=== PATIENT | male | born 1990 | race Caucasian/White ===

== ENCOUNTER → 2019-10-11 | Outpatient (CLI) | payer MEDICAID | END | disposition home or self-care (01) | LOC: RAD 10:58 | PROVIDERS: ATTEND Physician Assistant Medical | DX: R55 Syncope and collapse (principal) | CPT/HCPCS: 95816 ==

== ENCOUNTER 2022-01-11 09:27 | Day surgery (SDC) | payer MEDICAID ==
[2022-01-07 14:43] LABS: BASOPHILS # (AUTO) 0.1 X10'3 (0-0.2); BASOPHILS % (AUTO) 1.2 % (0-1); EOSINOPHILS # (AUTO) 0.3 X10'3 (0-0.9); EOSINOPHILS % (AUTO) 5.1 % (0-6); LYMPHOCYTES # (AUTO) 1.3 X10'3 (1.1-4.8); LYMPHOCYTES % (AUTO) 25.3 % (21-51); MEAN CORPUSCULAR HEMOGLOBIN 29.4 PG (27.0-31.0); MEAN CORPUSCULAR HGB CONC 33.6 g/dL (33.0-36.5); MEAN CORPUSCULAR VOLUME 87.3 FL (78-98); MEAN PLATELET VOLUME 7.5 FL (7.4-10.4); MONOCYTES # (AUTO) 0.5 X10'3 (0-0.9); MONOCYTES % (AUTO) 8.7 % (2-12); NEUTROPHILS # (AUTO) 3.1 X10'3 (1.8-7.7); NEUTROPHILS % (AUTO) 59.7 % (42-75); PRE OP HEMOGLOBIN 15.5 g/dL (14.0-17.9); PRE OP PLATELET COUNT 227 X10'3 (140-440); RED BLOOD COUNT 5.27 X10'6 (4.70-6.10); RED CELL DISTRIBUTION WIDTH 12.9 % (11.5-14.5)
[2022-01-07 14:57] LABS: ALBUMIN 3.9 G/DL (3.4-5.0); ALBUMIN/GLOBULIN RATIO 1.1 (1.1-1.5); ALKALINE PHOSPHATASE 134 IU/L (46-116); BLOOD UREA NITROGEN 16 MG/DL (7-18); BUN/CREATININE RATIO 17.6 (5.4-32.0); CHLORIDE 106 MMOL/L (99-107); CREATININE 0.91 MG/DL (0.60-1.10); PRE OP ALT 65 U/L (30-65); PRE OP ANION GAP 7 (8-16); PRE OP AST 47 U/L (10-37); PRE OP BILIRUB, TOTAL 0.4 MG/DL (0.0-1.0); PRE OP GLUCOSE 100 MG/DL (70-104); PRE OP POTASSIUM 3.8 MMOL/L (3.4-5.1); PRE OP SODIUM 142 MMOL/L (135-145); TOTAL CARBON DIOXIDE 29.3 MMOL/L (24-32); TOTAL PROTEIN 7.4 G/DL (6.4-8.2); eGFR > 90 ML/MIN
[2022-01-11] VITALS (27 sets, daily range): BP systolic 125–169; BP diastolic 64–106
[~2022-01-11] VITALS: Ht 167.6 cm; Wt 93.2 kg
[~2022-01-11 09:27] MED LIST: INDOCYANINE GREEN 25 MG/10 ML VIAL IV ONE; NO HOME MEDS; clindamycin-Cleocin 900mg/D5W 50 ML IV ONE; famotidine 20mg tablet PO ONE; meperidine/PF 25mg/ml syringe IV PRN; morphine 2 MG/ML inj. syringe IV PRN; morphine 4 MG/ML inj SYRINge IV PRN; ondansetron/PF 4mg/2ml inj IV PRN; proCHLORperazine 10 MG/2 ml inj IV PRN; ringers solution, lacted 1,000 ML IV SCH
--- NOTE | 2022-01-11 10:00 | NUR ---
PATIENT PREPPED FOR SURGERY, IV STARTED FIRST SO IC GREEN COULD BE INJECTED. IC GREEN GIVEN SLOWLY WITHOUT ANY SIGNS OF A REACTION. IV STARTED IN LEFT HAND [address] POWER AT BEDSIDE, ANSWERED QUESTIONS FROM PATIENT. PATIENT STATES THAT HIS PARENTS WILL COME AND PICK HIM UP TO TAKE HIM HOME. PT EDUCATED ON USE OF THE INCENTIVE SPIROMETER. PRE-OP EDUCATION COMPLETED ON PEPCID, USE OF THE CALL STRANGE AND FALL PREVENTIONS
[2022-01-11] MEDS ORDERED: LIDOcaine 1% 30ml preserv. free vial ONE (11:20)
[2022-01-11] MEDS ORDERED: BUPIVAcaine/PF 2.5mg/ml (0.25%) 10ml vial ONE (11:21)
[2022-01-11] MEDS ORDERED: fentaNYL/PF 50MCG/1 ML 2ML syringe ONE (11:42)
[2022-01-11] MEDS ORDERED: midazolam 1 mg/ML 2ml injection ONE (11:42)
[2022-01-11] MEDS ORDERED: meperidine/PF 50mg/ml syringe ONE (11:43)
[2022-01-11] MEDS ORDERED: propofol inj 20 ML IV ONE (11:44)
[2022-01-11] MEDS ORDERED: LIDOcaine 1%/PF 5ML 10 MG/ML VIAL ONE (11:44)
[2022-01-11] MEDS ORDERED: dexamethasone sod phosphate 4mg/ml inj. ONE (12:13)
[2022-01-11] MEDS ORDERED: rocuronium 10mg/ml inj IV ONE (12:13)
[2022-01-11] MEDS ORDERED: ondansetron/PF 4mg/2ml inj ONE (13:04)
[2022-01-11] MEDS ORDERED: oxyCODONE/APAP 5-325mg tablet PO PRN (13:15)
--- NOTE | 2022-01-11 13:37 | NUR ---
Received from OR via [facility], accompanied by Anesthesiologist and report given by GLENDY Anesthesiologist. PATIENT WAKING UP, DENIES PAIN, V/S WNL, PIV 20G LEFT HAND, BANDAIDS LAPS SITES CLOSED AND ISLAND DRESSING C/D/I TO ABDOMEN. Addendum: 01/11/22 at 1407 by Dre Johnson RN Amended: Links added.
[2022-01-11] MEDS ORDERED: acetaminophen 1,000mg/100ml IV 100 ML IV ONE (14:25)
[2022-01-11] MEDS ORDERED: ketorolac tromethamine 15mg/ml inj. IV ONE (14:25)
[2022-01-11] MEDS ORDERED: ketorolac trometh. 30mg/ml inj. IV ONE (14:50)
--- NOTE | 2022-01-11 18:12 | NUR ---
ALL DISCHARGE CRITERIA HAS BEEN MET. VSS, PAIN AT A TOLERABLE LEVEL, VOIDING AND ABLE TO SAFELY AMBULATE AND TRANSFER SELF. IV TAKEN OUT WITHOUT ANY COMPLICATIONS. ALL DISCHARGE INSTRUCTIONS COVERED WITH PATIENT AND ALL QUESTIONS ANSWERED. PATIENT TAKEN OUT VIA WHEELCHAIR WITH ALL BELONGINGS TO PERSONAL VEHICLE WHERE FAMILY DROVE PATIENT HOME. Addendum: 01/11/22 at 1817 by Dre Johnson RN Amended: Links added.
== END 2022-01-11 18:12 | disposition home or self-care (01) ==
LOC: PAS 09:27
PROVIDERS: ATTEND Surgery
DX: K42.0 Umbilical hernia with obstruction, without gangrene (principal); K80.12 Calculus of gallbladder with acute and chronic cholecystitis without obstruction; Z79.899 Other long term (current) drug therapy; Z98.890 Other specified postprocedural states; F41.9 Anxiety disorder, unspecified; Z88.1 Allergy status to other antibiotic agents
CPT/HCPCS: 36415; 47563; 49653; 80053; 82948; 85025; 93005; J0131; J1100; J1885; J2175; J2250; J2405; J2704; J3010; J3490; J7030; J7120; S2900; Z7506; Z7508; Z7512; A4215; A4615; A4618; A7000